=== PATIENT | female | born 1995 | race Caucasian/White ===

== ENCOUNTER 2019-09-10 19:04 | Emergency (ER) | payer OTHER, SELFPAY ==
--- NOTE | ~2019-09-10 | US_ITS ---
EXAMINATION: US OB <=14 wk fetus w TV DATE: 09/10/2019 21:25 INDICATION: Pelvic pain. . TECHNIQUE: Real-time transabdominal and transvaginal pelvic ultrasound was performed. COMPARISON: CT abdomen and pelvis 01/19/2019 FINDINGS: TRANSABDOMINAL ULTRASOUND: The uterus measures 9.4 x 4.0 x 6.5 cm.. TRANSVAGINAL ULTRASOUND: There is no visible intrauterine gestational sac. There is an intrauterine d evice in expected position. The right ovary measures 2.8 x 1.8 x 2.5 cm. The left ovary measures 1.7 x 3.3 x 2.7 cm. There is a small volume of free fluid in the pelvis. IMPRESSION: 1. No visible intrauterine gestational sac, which may be normal in early . Spontaneous abor tion and ectopic are not excluded. 2. Intrauterine device in expected position. Reviewed, dictated and finalized at location A. IMPRESSION: 1. No visible intrauterine gestational sac, which may be normal in early pregn ashly. Spontaneous and ectopic are not excluded. 2. Intrauterine device in expected position.
[2019-09-10 19:07] VITALS: BP 123/70; PULSE 102; RESP 16; TEMP 36.5; O2SAT 100
--- NOTE | 2019-09-10 19:18 | ED.ABDPAIN ---
HPI - Abdominal Pain General Chief Complaint: Abdominal Pain Stated Complaint: abd pain Time Seen by Provider: 09/10/19 19:16 Source: patient and RN notes reviewed Mode of arrival: other Limitations: no limitations History of Present Illness HPI narrative: Pt is a 24 y/o female who presents to the ED with c/o intermittent lower abdominal pain that began 2 weeks ago, but she states her pain has become more constant today. Pt went to her PCP on Wednesday (09/08/19) and pt has a scheduled US on Wednesday (09/12/19). Pt states that she cannot wait until her US. She notes that her PCP gave her a pelvic exam, but had no significant findings. She states that she also had a pelvic swabbing, but she has not heard back about the results. She notes that she was given a shot for PID. Pt had an IUD placed in May 2018. Pt also reports vaginal bleeding for the past month. Pt denies any alleviating and aggravating factors. Pt denies taking any pain medication for her sx. Pt denies N/V/D, constipation, dysuria, urinary frequency, urinary retention, and vaginal discharge. MD elicited complaint: abdominal pain Onset (ago): week(s) (2) Pain Consistency: constant (today) and intermittent (for the past 2 weeks) Location: other (lower abdomen) Exacerbating factors: nothing Relieving factors: nothing Associated symptoms: other (vaginal bleeding) Treatments prior to arrival: other (none) Related Data Home Medications Medication Instructions Recorded Confirmed No Home Medications 09/10/19 09/10/19 Allergies Allergy/AdvReac Type Severity Reaction Status Date / Time No Known Allergies Allergy Mild Verified 09/10/19 19:18 Review of Systems Review of Systems: All systems reviewed & are unremarkable except as noted in HPI and below Gastrointestinal: Gastrointestinal: Reports abdominal pain (lower), Denies constipation, Denies diarrhea, Denies nausea and Denies vomiting Genitourinary: Genitourinary: Reports abnormal vaginal bleeding, Denies nocturia, Denies dysuria, Denies vaginal discharge and Denies other (urianry retention) [facility] Past Medical History Medical History IUD (intrauterine device) in place Surgical History Surgical History (Updated 09/10/19 @ 19:32 by Parvin Sotomayor) Surgical history unknown Social History Social History (Updated 09/10/19 @ 19:33 by Parvin Milligan Smoking status: Current every day smoker Tobacco type: cigarettes Exam Const: General: healthy appearing and no acute distress Nutritional Appearance: well nourished HENMT: Mouth: Yes lip normal and Yes moist mucous membranes Eyes: Conjunctivae: conjunctivae normal Pupils: Equal, round and reactive pupils present Resp: Effort & Inspection: normal respiratory effort Auscultation: clear to auscultation bilaterally Cardio: Rate: regular rate Rhythm: regular rhythm Heart sounds: no murmurs GI: GI Palp: Yes abdominal tenderness (suprapubic) and Yes Soft to palpation Auscultation: normal bowel sounds Back/Spine/Pelvis: Back: other (full ROM) Skin: General skin exam: normal color, dry skin and other (warm) Neuro: General: patient oriented x3 and other (alert) Speech: normal speech Psych: Mental Status: mental status grossly normal Affect: Sad affect present (and tearful) Course Consultations Consultation #1: Discussed case with Dr. Stanley (OBGYN). Recommends pt follow up within 24 hours. She can follow up with her primary OBGYN or if not, will see in clinic tomorrow afternoon. Date: 09/10/19 Time: 21:54 Vital Signs Vital signs: Vital Signs Temperature 36.5 C 09/10/19 19:07 Pulse Rate 102 H 09/10/19 19:07 Respiratory Rate 16 09/10/19 19:07 Blood Pressure 123/70 09/10/19 19:07 Pulse Oximetry 100 09/10/19 19:07 Temperature 36.5 C 09/10/19 19:07 Pulse Rate 97 09/10/19 21:51 Respiratory Rate 18 09/10/19 21:51 Blood Pressure 129/83 09/10/19 21:51 Pulse Oximetry 100 09/10/19 21:51 MDM - Abdominal Pa
--- NOTE | 2019-09-10 19:39 | PC.NURSE ---
pt states she urinated priot to coming to ed, states she isn't able to urinate currently. refusing straight cath.
[2019-09-10 19:42] LABS: Basophils Absolute Auto 0.1 K/mm3 (0.0-0.1); Basophils Percent Auto 0.5 % (0.2-1.2); Eosinophils Absolute Auto 0.2 K/mm3 (0-0.3); Eosinophils Percent Auto 1.6 % (0-4.4); Hematocrit 41.4 % (37.0-47.0); Hemoglobin 13.2 g/dL (12.0-15.0); Immature Granulocyte Absolute 0.05 K/mm3 (0.00-0.031); Immature Granulocyte Percent A 0.4 % (0-0.5); Lymphocytes Absolute Auto 2.17 K/mm3 (0.9-3.2); Lymphocytes Percent Auto 18.8 % (18.3-44.2); Mean Corpuscular HGB Conc 31.9 g/dl (32-36); Mean Corpuscular Hemoglobin 27.6 pg (26-34); Mean Corpuscular Volume 86.4 fl (80-100); Mean Platelet Volume 9.9 fl (7.4-10.4); Monocytes Absolute Auto 0.7 K/mm3 (0.1-0.6); Monocytes Percent Auto 6.2 % (2.6-8.5); Neutrophils Absolute Auto 8.4 K/mm3 (1.3-6.7); Neutrophils Percent Auto 72.5 % (45.5-73.1); Platelet Count Result 323 k/mm3 (150-375); Red Blood Count 4.79 M/mm3 (4.2-5.4); Red Cell Distribution Width 13.8 % (11.5-14.5); White Blood Count 11.6 K/mm3 (4.5-10.0)
[2019-09-10] MEDS: SODIUM CHLORIDE 0.9% IV 1,000 ML 999 ML IV CONT (19:49)
[2019-09-10 19:53] LABS: Alanine Aminotransferase 17 U/L (4-35); Albumin Level 4.5 g/dL (3.5-5.1); Alkaline Phosphatase 72 U/L (38-126); Aspartate Amino Transferase 25 U/L (14-36); Bilirubin,Total 0.2 mg/dL (0.2-1.3); Blood Urea Nitrogen 19 mg/dL (7-17); Calcium 9.2 mg/dL (8.4-10.2); Carbon Dioxide 24 mmol/L (22-30); Chloride 105 mmol/L (98-107); Estimated CRCL calculation 106 ml/min; Estimated Glomerular Filt Rate > 60; Glucose 92 mg/dL (65-105); Lipase 68 U/L (23-300); Potassium 3.9 mmol/L (3.4-5.0); Sodium 135 mmol/L (137-145)
[2019-09-10 20:25] VITALS: BP 121/77; PULSE 95; RESP 16; O2SAT 99
--- NOTE | 2019-09-10 20:25 | PC.NURSE ---
pt states she isn't able to urinate, refused straight cath.
--- NOTE | 2019-09-10 20:36 | PC.NURSE ---
US here to take pt.
--- NOTE | 2019-09-10 21:29 | PC.NURSE ---
pt returns from US at this time.
[2019-09-10 21:51] VITALS: BP 129/83; PULSE 97; RESP 18; O2SAT 100
--- NOTE | 2019-09-14 11:53 | PC.NURSE ---
Late Entry by this RN. This Pt received 1000ml of NS that was completed at 1999.
== END 2019-09-10 22:18 | disposition home or self-care (01) ==
PROVIDERS: Emergency Provider Emergency Medicine; PCP Physician Assistant
DX: O26.891 Other specified pregnancy related conditions, first trimester (principal); R10.2 Pelvic and perineal pain; Z97.5 Presence of (intrauterine) contraceptive device; F17.210 Nicotine dependence, cigarettes, uncomplicated; Z3A.01 Less than 8 weeks gestation of pregnancy
CPT/HCPCS: 36415; 76801; 76817; 80053; 81025; 83690; 84702; 85025; 86900; 86901; 96374; 99284; J0131; J7030

== ENCOUNTER 2019-09-11 17:16 | Day surgery (SDC) | payer OTHER, SELFPAY ==
[2019-09-11] VITALS (11 sets, daily range): BP systolic 90–141; BP diastolic 38–75; PULSE 68–125; RESP 12–21; TEMP 36.4–37; O2SAT 96–100
--- NOTE | ~2019-09-11 | US_ITS ---
EXAMINATION: US OB <= 14 weeks fetus EXAM DATE: 09/11/2019 18:23 INDICATION: Beta-hCG 18,000, has IUD. Possible ectopic, left-sided abdominal pain. First trimester. TECHNIQUE: Pelvic obstetrical transabdominal sonogram was performed by a technologist. There are mu ltiple grayscale and Doppler images available for interpretation. Comparison is made to prior examina tion from 09/10/2019. FINDINGS: There is IUD centrally located within the uterus. The uterus is anteverted. There is no int rauterine . There is moderate amount of echogenic fluid within the pelvic cul-de-sac, protei naceous fluid. Right ovary is not identified. Contiguous to the left ovary which measures 2.8 x 2.0 x 2.5 cm, there is a masslike region with small central cystic component, appears to have thick wall, region measuring 2.2 x 2.7 x 2.2 cm. Does not appear to have increased vascularity, and cannot confirm heart rate within this, but it is susp icious for a tubal ectopic . Compared to yesterday there is likely mild interval increase in quantity of free pelvic fluid. IMPRESSION: 1. Complex cystic left adnexal mass, appearance suspicious for a tubal ectopic . 2. Moderate amount of free pelvic fluid which could be blood products. Reviewed, dictated and finalized at location A.
--- NOTE | 2019-09-11 17:30 | PC.NURSE ---
Pt states still has an IUD in place.
--- NOTE | 2019-09-11 17:41 | PC.NURSE ---
pt tearful. c/o intense constant left upper quadrant abd pain.
[2019-09-11] MEDS: MORPHINE SULFATE 4 MG/ML INJ IV PUSH (17:46)
[2019-09-11 17:56] LABS: Basophils Absolute Auto 0.1 K/mm3 (0.0-0.1); Basophils Percent Auto 0.5 % (0.2-1.2); Eosinophils Absolute Auto 0.1 K/mm3 (0-0.3); Eosinophils Percent Auto 0.8 % (0-4.4); Hematocrit 40.6 % (37.0-47.0); Hemoglobin 13.1 g/dL (12.0-15.0); Immature Granulocyte Absolute 0.04 K/mm3 (0.00-0.031); Immature Granulocyte Percent A 0.3 % (0-0.5); Lymphocytes Absolute Auto 1.76 K/mm3 (0.9-3.2); Lymphocytes Percent Auto 14.2 % (18.3-44.2); Mean Corpuscular HGB Conc 32.3 g/dl (32-36); Mean Corpuscular Hemoglobin 27.8 pg (26-34); Mean Corpuscular Volume 86.2 fl (80-100); Mean Platelet Volume 10.1 fl (7.4-10.4); Monocytes Absolute Auto 0.6 K/mm3 (0.1-0.6); Monocytes Percent Auto 5.2 % (2.6-8.5); Neutrophils Absolute Auto 9.8 K/mm3 (1.3-6.7); Platelet Count Result 336 k/mm3 (150-375); Red Blood Count 4.71 M/mm3 (4.2-5.4); White Blood Count 12.4 K/mm3 (4.5-10.0)
--- NOTE | 2019-09-11 18:00 | ED.ABDPAIN ---
HPI - Abdominal Pain General Chief Complaint: Abdominal Pain <JALEN Hill Last Filed: 09/11/19 20:51> Stated Complaint: ectopic pregancy, chest pain <JALEN Hill Last Filed: 09/11/19 20:51> Time Seen by Provider: 09/11/19 17:34 <JALEN Hill Last Filed: 09/11/19 20:51> Source: patient <JALEN Hill Last Filed: 09/11/19 20:51> Mode of arrival: wheelchair <JALEN Hill Last Filed: 09/11/19 20:51> Limitations: no limitations <JALEN Hill Last Filed: 09/11/19 20:51> History of Present Illness HPI narrative: This is a 24 year old female that presents to the ER for left sided abdominal pain since yesterday. Reports cramping lower abdominal pain. Reports she was seen here for this yesterday and diagnosed with a possible ectopic . Reports she followed up with her OB today who sent her to the hospital for a methotrexate injection. Reports she then started having some pain in her left upper abdomen/chest. Reports the pain is sharp and stabbing. Denies fever, shortness of breath, vomiting, diarrhea or dysuria. <Margot Puente PA-C - Last Filed: 09/11/19 20:51> Related Data Allergies/Adverse Reactions: Allergies Allergy/AdvReac Type Severity Reaction Status Date / Time No Known Allergies Allergy Mild Verified 09/11/19 17:29 <Margot Puente PA-C - Last Filed: 09/11/19 20:51> Review of Systems Review of Systems: Narrative: CONSTITUTIONAL: Denies fever CARDIOVASCULAR: Reports chest pain RESPIRATORY: Denies dyspnea. GASTROINTESTINAL: Report abdominal pain, nausea. Denies vomiting, or diarrhea. GENITOURINARY: Denies dysuria or hematuria. <JALEN Hill Last Filed: 09/11/19 20:51> All systems reviewed & are unremarkable except as noted in HPI and below <JALEN Hill Last Filed: 09/11/19 20:51> [facility] Past Medical History Medical History: Medical History IUD (intrauterine device) in place <Margot Puente PA-C - Last Filed: 09/11/19 20:51> Surgical History Surgical History: Surgical History Surgical history unknown <Margot Puente PA-C - Last Filed: 09/11/19 20:51> Social History Social History: Social History Smoking status: Current every day smoker Tobacco type: cigarettes <Margot Puente PA-C - Last Filed: 09/11/19 20:51> Exam Narrative: Exam Narrative: GENERAL: Well-appearing, well-nourished, and in mild acute distress due to pain HEAD: Normocephalic, atraumatic. EYES: EOMI. CHEST: Clear to auscultation. No respiratory distress. No wheezes rales or rhonchi. Tender to palpation of the left lower anterior chest wall HEART: Regular rate and rhythm. No murmur heard. Normal peripheral pulses. ABDOMEN: Soft, nondistended, normal active bowel sounds. Moderate tenderness to palpation of the LLQ EXTREMITIES: Normal range of motion. No edema. SKIN: Warm, dry, no rash. NEURO: No focal deficits. Alert and oriented x3. PSYCH: Normal mood and affect PELVIC: Normal external genitalia. Small to moderate amount of blood in the vaginal vault. Slowly oozing blood from cervix <Margot Puente PA-C - Last Filed: 09/11/19 20:51> Course Consultations Consultation #1: Spoke with Dr. Stanley about patient work-up will take patient to the OR for a pelvic laparoscopy <Margot Puente PA-C - Last Filed: 09/11/19 20:51> Date: 09/11/19 <JALEN Hill Last Filed: 09/11/19 20:51> Time: 20:00 <JALEN Hill Last Filed: 09/11/19 20:51> Vital Signs Vital signs: Vital Signs Temperature 37.0 C 09/11/19 17:22 Pulse Rate 125 H 09/11/19 17:22 Respiratory Rate 21 H 09/11/19 17:22 Blood Pressure 139/75 09/11/19 17:22 Pulse Oximetry 100 09/11/19 17:22 Temperature 36.4 C 09/11/19 21:45 Pulse Ra
[2019-09-11] MEDS: ONDANSETRON INJ 4 MG/2 ML VIAL IV PUSH ×2 (18:03→22:52)
[2019-09-11] MEDS: SODIUM CHLORIDE 0.9% IV 1,000 ML 999 ML IV CONT (18:31)
[2019-09-11 19:01] LABS: Alanine Aminotransferase 17 U/L (4-35); Albumin Level 4.2 g/dL (3.5-5.1); Alkaline Phosphatase 59 U/L (38-126); Aspartate Amino Transferase 25 U/L (14-36); Bilirubin,Total 0.5 mg/dL (0.2-1.3); Blood Urea Nitrogen 11 mg/dL (7-17); Calcium 8.6 mg/dL (8.4-10.2); Carbon Dioxide 23 mmol/L (22-30); Chloride 102 mmol/L (98-107); Estimated CRCL calculation 123 ml/min; Estimated Glomerular Filt Rate > 60; Glucose 104 mg/dL (65-105); Potassium 3.7 mmol/L (3.4-5.0); Sodium 135 mmol/L (137-145)
--- NOTE | 2019-09-11 19:33 | PC.NURSE ---
Per ROLA Frost verbal order read-back, no UA needed.
--- NOTE | 2019-09-11 20:24 | PM.IMHP ---
H&P: HPI History of Present Illness Chief complaint: ectopic pregancy, chest pain Narrative: Ashley Arriaza is a 24 year old female presents after being seen yesterday in the emergency room with beta HCG of 1700 and ultrasound which was essentially negative. Saw her primary physician in the office today at which point methotrexate was ordered. Patient came to have the methotrexate given which was and then began having more left lower quadrant upper quadrant discomfort ultrasound was repeated and does not show a 2cm left adnexal mass along with a beta HCG of approximately 1700 again. Therefore we will be proceeding with laparoscopic evaluation likely left salpingectomy. Of note patient also has an IUD which is in place appropriately and will be left in place. She has had some bleeding over the past few weeks but no significant pain and as she bleeds irregular with her IUD had noted that this was nothing unusual for her. Denies any GI or complaints. Review of Systems Review of Systems: All systems reviewed & are unremarkable except as noted in HPI and below PMFSH Past Medical History Medical History IUD (intrauterine device) in place Surgical History Surgical History (Updated 09/10/19 @ 19:32 by Parvin Sotomayor) Surgical history unknown Social History Social History (Updated 09/10/19 @ 19:33 by Parvin Sotomayor) Smoking status: Current every day smoker Tobacco type: cigarettes Meds Home Medications and Allergies Home Medications Medication Instructions Recorded Confirmed Type methotrexate sodium 10 mg SUBCUT WEEKLY 09/11/19 History Allergies Allergy/AdvReac Type Severity Reaction Status Date / Time No Known Allergies Allergy Mild Verified 09/11/19 17:29 Vital Signs Vital Signs - 24 hr 09/11/19 17:22 09/11/19 18:16 09/11/19 18:32 Temperature 37.0 C 37.0 C Pulse Rate 125 H 93 Respiratory Rate 21 H 16 Blood Pressure 139/75 115/73 Pulse Oximetry 100 100 09/11/19 19:23 Temperature Pulse Rate 90 Respiratory Rate Blood Pressure 141/70 H Pulse Oximetry Exam Const: General: cooperative Resp: Auscultation: clear to auscultation bilaterally Cardio: Rate: regular rate Rhythm: regular rhythm GI: GI Palp: Yes abdominal tenderness Auscultation: normal bowel sounds H&P: Results Labs Labs: Short CBC 09/11/19 Range/Units 17:47 WBC 12.4 H (4.5-10.0) K/mm3 Hgb 13.1 (12.0-15.0) g/dL Hct 40.6 (37.0-47.0) % Plt Count 336 (150-375) k/mm3 BMP 09/11/19 09/11/19 17:47 18:37 Sodium Cancelled 135 L Potassium Cancelled 3.7 Chloride Cancelled 102 Carbon Dioxide Cancelled 23 BUN Cancelled 11 D Creatinine Cancelled 0.60 L Glucose Cancelled 104 Calcium Cancelled 8.6 Liver Function 09/11/19 09/11/19 Range/Units 17:47 18:37 Total Bilirubin Cancelled 0.5 AST Cancelled 25 ALT Cancelled 17 Alkaline Phosphatase Cancelled 59 Albumin Cancelled 4.2 Assessment and Plan Assessment and plan (1) Adnexal mass: Code(s): N94.89 - Other specified conditions associated with female genital organs and menstrual cycle Status: Acute Assessment and Plan: With a positive beta HCG and adnexal mass as well as increasing free fluid a diagnosis of ectopic and likely ruptured ectopic is made. We will be proceeding with laparoscopic evaluation possible laparotomy and likely left salpingectomy the left salpingo oophorectomy also possibility. Questions have been answered and we will be proceeding with plan as above.
--- NOTE | 2019-09-11 20:47 | WPDANESEPPF ---
Anes - Initial Pre Proc Eval Procedure: Operation Date: 09/11/19 20:45 Proposed Procedures p Diagnostic Laparoscopy Possible Ectopic - Salty Stanley MD Date/Time: 09/11/19 20:47 Surgeon: Salty Stanley MD Pre Op Diagnosis: ectopic pregancy, chest pain Patient Data Age: 24 Gender: F Height: 5 ft 4 in Weight: 77.11 kg Last Vital Signs Temp 36.6 C 09/11/19 20:30 Pulse 102 H 09/11/19 20:30 Resp 18 09/11/19 20:30 BP 110/65 09/11/19 20:30 Pulse Ox 100 09/11/19 20:30 Allergies Allergy/AdvReac Type Severity Reaction Status Date / Time No Known Allergies Allergy Mild Verified 09/11/19 17:29 Home Medications Medication Instructions Recorded Confirmed Type methotrexate sodium 10 mg SUBCUT WEEKLY 09/11/19 History Laboratory Tests 09/11/19 09/11/19 09/11/19 17:47 17:47 18:37 WBC 12.4 K/mm3 H K/mm3 (4.5-10.0) RBC 4.71 M/mm3 M/mm3 (4.2-5.4) Hgb 13.1 g/dL g/dL (12.0-15.0) Hct 40.6 % % (37.0-47.0) MCV 86.2 fl fl (80-100) MCH 27.8 pg pg (26-34) MCHC 32.3 g/dl g/dl (32-36) RDW 14.0 % % (11.5-14.5) Plt Count 336 k/mm3 k/mm3 (150-375) MPV 10.1 fl fl (7.4-10.4) Immature Gran % (Auto) 0.3 % % (0-0.5) Neut % (Auto) 79.0 % H % (45.5-73.1) Lymph % (Auto) 14.2 % L % (18.3-44.2) [place] % (Auto) 5.2 % % (2.6-8.5) Eos % (Auto) 0.8 % % (0-4.4) Baso % (Auto) 0.5 % % (0.2-1.2) Lymph # (Auto) 1.76 K/mm3 K/mm3 (0.9-3.2) [place] # (Auto) 0.6 K/mm3 K/mm3 (0.1-0.6) Eos # (Auto) 0.1 K/mm3 K/mm3 (0-0.3) Baso # (Auto) 0.1 K/mm3 K/mm3 (0.0-0.1) Abs Immat Gran (auto) 0.04 K/mm3 H K/mm3 (0.00-0.031) Absolute Neuts (auto) 9.8 K/mm3 H K/mm3 (1.3-6.7) Absolute Nucleated RBC 0.0 K/mm3 K/mm3 (0.0-0.012) Nucleated RBC % 0.0 % % (0.0-0.2) Sodium Cancelled 135 mmol/L L mmol/L (137-145) Potassium Cancelled 3.7 mmol/L mmol/L (3.4-5.0) Chloride Cancelled 102 mmol/L mmol/L (98-107) Carbon Dioxide Cancelled 23 mmol/L mmol/L (22-30) BUN Cancelled 11 mg/dL D mg/dL (7-17) Creatinine Cancelled 0.60 mg/dL L mg/dL (0.7-1.0) Estim Creat Clear Calc Cancelled 123 ml/min ml/min Estimated GFR Cancelled > 60 (59 - ) Glucose Cancelled 104 mg/dL mg/dL (65-105) Calcium Cancelled 8.6 mg/dL mg/dL (8.4-10.2) Total Bilirubin Cancelled 0.5 mg/dL mg/dL (0.2-1.3) AST Cancelled 25 U/L U/L (14-36) ALT Cancelled 17 U/L U/L (4-35) Alkaline Phosphatase Cancelled 59 U/L U/L (38-126) Total Protein Cancelled 7.0 g/dL g/dL (6.3-8.2) Albumin Cancelled 4.2 g/dL g/dL (3.5-5.1) Beta HCG, Quant 1734.00 mIU/ML mIU/ML Patient hx anesthesia problems: none Family hx anesthesia problems: none [facility] Past Medical History Medical History IUD (intrauterine device) in place Surgical History Surgical History Surgical history unknown Social History Social History Smoking status: Current every day smoker Tobacco type: cigarettes Anes - Eval Final PreProcedure Day of Procedure 09/11/19 20:47 Patient weight: overweight Heart: regular rate and rhythm Lungs: clear to auscultation Airway: Mallampati scale class II Neurological: alert and oriented Last oral intake: >/= 8 hours ASA classification: II Emergent: yes Anesthetic plan: proceed Anesthesia type and monitoring: general ETT and standard monitoring Informed Consent: The patient's anesthetic plan and its attendant risks and benefits were discussed with the patient/family/POA. Questions were solici
--- NOTE | 2019-09-11 21:38 | PM.OP ---
Procedure Note - Brief Procedure Note - Brief Date of procedure: 09/11/19 Pre-op diagnosis: ectopic pregancy, chest pain Post-op diagnosis: same Procedure performed: 1. Laparoscopy 2. Left salpingectomy Description of procedure: Patient was prepped and draped in usual manner for this procedure. Cervical instruments were placed for uterine mobility during the case. Periumbilical incision was made through which the trocar was placed under direct visualization. Immediate notation of uterus right tube and ovary without abnormality and left ectopic minimal amount of blood was also noted throughout the pelvis. Left and right lower quadrant incisions were made and trocars placed under direct visualization. Using the Harmonic scalpel the left mesial salpinx was cauterized and cut to separate the left tube and ectopic from the mesial salpinx uterus and ovary. This was then placed in the Endo-Catch bag and removed without difficulty. Irrigation was undertaken. There was no bleeding. At this point Yanira was placed over the incisional site on the left tube. Gas was allowed to escape and incisions were approximated using 4 Monocryl. Patient was sent to recovery room in stable condition. Anesthesia: GLMA Surgeon: Salty Stanley MD Estimated blood loss (mL): 5 Drains: No Packing: No Pathology: yes (Left tube and ectopic) Complications: No immediate complications Condition: stable Disposition: PACU Findings: Uterus right tube and ovary without abnormality left tubal was noted. Left ovary was without abnormality. [id number] hemoperitoneum was also noted.
[2019-09-11] MEDS: LACTATED RINGERS 1,000 ML 30 ML IV CONT (21:45)
== END 2019-09-11 23:38 | disposition home or self-care (01) ==
LOC: ANHED 20:17 → ANHOUTPT 20:19
PROVIDERS: Physician Assistant; Emergency Provider Emergency Medicine; PCP Physician Assistant; Visit Provider Obstetrics & Gynecology
PROC: (CPT 49320; principal; 2019-09-11 20:45)
DX: O00.102 Left tubal pregnancy without intrauterine pregnancy (principal); Z97.5 Presence of (intrauterine) contraceptive device; F17.210 Nicotine dependence, cigarettes, uncomplicated
CPT/HCPCS: 59151; 36415; 76801; 80053; 84702; 85025; 86900; 86901; 88305; 96361; 96374; 96375; 99285; A9270; J0131; J1100; J2250; J2270; J2405; J2704; J2710; J3010; J7030; J7120